=== PATIENT | male | born 1975 | race Caucasian/White ===

== ENCOUNTER 2018-08-10 11:36 | Emergency (ER) | payer BC ==
[2018-08-10 11:42] VITALS: BP 148/82; PULSE 89; RESP 18
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
--- NOTE | 2018-08-10 13:36 | XR ---
EXAMINATION TYPE: XR wrist complete LT , 3 VIEWS DATE OF EXAM ORDERED: 08/10/2018 HISTORY: injury. COMPARISON: None. FINDINGS: There is a mildly displaced fracture the distal one third of the diaphysis of the left uln a. No definite radial fracture is seen IMPRESSION: MILDLY DISPLACED FRACTURE THE DISTAL ONE THIRD OF THE DIAPHYSIS OF THE LEFT ULNA. CODE A: INITIAL ENCOUNTER FOR CLOSED FRACTURE.
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
[2018-08-10] MEDS ORDERED: DIPH,PERTUS(ACELL)TETVAC-LF 0.5 ML VIAL IM ONE (13:45)
[2018-08-10] MEDS ORDERED: ACETAMINOPHEN TAB 500 MG TAB PO ONE (13:45)
== END 2018-08-10 15:00 | disposition home or self-care (01) ==
LOC: EC 11:36
DX: S52.602A Unspecified fracture of lower end of left ulna, initial encounter for closed fracture (principal); S01.81XA Laceration without foreign body of other part of head, initial encounter; R11.0 Nausea; Z88.4 Allergy status to anesthetic agent; Z88.8 Allergy status to other drugs, medicaments and biological substances; Y00.XXXA Assault by blunt object, initial encounter
CPT/HCPCS: 29125; 70450; 99284

== ENCOUNTER → 2018-08-16 | Day surgery (SDC) | payer BC ==
[2018-08-14 10:54] VITALS: BMI 31.6
[~2018-08-16] MED LIST: BUPIVACAINE-EPI 0.5%-1:200,000 10 ML VIAL SQ ONE; DEXAMETHASONE SOD PHOSPHATE 10 MG/ML 1 ML VIAL IV ONE; HYDROcodone/APAP 5-325MG 1 EACH TAB PO ONE; HYDROmorphone (PF) 1 MG/ML ONE; HYDROmorphone 0.5 MG/0.5 ML SYRINGE IVP PRN; LACTATED RINGERS 1,000 ML IV ONE; LACTATED RINGERS 1,000 ML IV SCH; LIDOCAINE 1% 20 ML VIAL (10MG/ML) FOR IV START INTRADERMA PRN; LIDOCAINE 1% INJ 10MG/ML (20 ML MDV) ONE; MEPERIDINE 50 MG/ML SYRINGE IVP ONE; MIDAZOLAM (PF) 2 MG/2 ML VIAL IV PRN; MIDAZOLAM 2 MG/2 ML VIAL ONE; ONDANSETRON 4 MG/2 ML VIAL IVP ONE; PROPOFOL 10 MG/ML 20 ML VIAL IV ONE; ROPIVACAINE 5 MG/ML 30 ML VIAL MISCELLANE ONE; ROPIVACAINE 5 MG/ML 30 ML VIAL ONE; SCOPOLAMINE 1.5MG/72HR PATCH TRANSDERM ONE; SUCCINYLCHOLINE CHLORIDE 100 MG/5 ML SYR IV ONE; ceFAZolin IN SWFI 2 GM/20 ML SYRINGE IVP ONE; fentaNYL (PF) 50 MCG/ML 2 ML AMP ONE
--- NOTE | 2018-08-16 14:30 | FL ---
EXAMINATION TYPE: FL guidance operating room, XR forearm LT DATE OF EXAM: 08/16/2018 CLINICAL HISTORY: Left ulnar fracture. TECHNIQUE: Fluoroscopy. 2 views left forearm. COMPARISON: Lentiform x-ray August 10, 2018. FINDINGS: Fluoroscopic guidance was provided during open reduction internal fixation procedure perfo rmed by Dr. Crow. A total of 5 seconds of fluoroscopic time was utilized during the procedure and 2 spot images was acquired. Intraoperative images acquired show placement of ulnar side fixating plate through mildly displaced t ransverse fracture distal ulnar diaphysis, satisfactory alignment is visualized on intraoperative gurinder ges obtained. IMPRESSION: As Above.
[2018-08-16 14:45] VITALS: TEMP 97
[2018-08-16 15:54] VITALS: RESP 17
[2018-08-16 16:28] VITALS: BP 159/89; PULSE 84
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
--- NOTE | 2018-08-18 20:09 | P.ONQ ---
Anesthesiology Proc Note - PNB - Peripheral Nerve Block Performed Left Infraclavicular Single Time Out Performed: Yes Procedure Start Time: 15:31 Procedure Stop Time: 15:37 Indication: Acute Post-Operative Pain, Requested by physician Sedation Type: Sedate with meaningful contact maintained Preparation: Sterile Prep Position: Supine Needle Size: 50mm (2") Needle Gauge: 21 Technique: Ultrasound Injectate: 0.5% Ropivacaine (see comment for volume) (ropi .5% 30cc) Blood Aspirated: No Pain Paresthesia on Injection Noted: No Resistance on Injection: Normal Events: Uneventful and Well Tolerated
== END | disposition home or self-care (01) ==
LOC: OR 11:22
PROVIDERS: ATTEND Orthopaedic Surgery
DX: S52.222A Displaced transverse fracture of shaft of left ulna, initial encounter for closed fracture (principal); Y00.XXXA Assault by blunt object, initial encounter; F17.210 Nicotine dependence, cigarettes, uncomplicated; Z88.8 Allergy status to other drugs, medicaments and biological substances
CPT/HCPCS: 25545; 64415; 73090; C1713; J2250 ×2; J1100; J2175; J2405; J2001; J3010; J1170; J2795; J0330; J2704; J0690; 64450; 64490